=== PATIENT | male | born 1955 | race Caucasian/White ===

== ENCOUNTER → 2021-05-11 | Outpatient (CLI) | payer OTHER ==
[~2021-05-11] MED LIST: ASPIR 8181 MG PO; BRILINTA 90 MG90 MG PO; CLOPIDOGREL75 MG PO; FISH OIL 1,0001 EACH PO; GLUCOPHAGE 500500 MG PO; GLUCOTROL 10 MG10 MG PO; IBUPROFEN800 MG PO; LIPITOR TAB 2020 MG PO; LISINOPRIL-HCT1 EACH PO; LISINOPRIL5 MG PO; LOPRESSOR 25 MG25 MG PO; NASAL DECONGEST30 ML; NITROSTAT 0.40.4 MG SL; PROTONIX 40 MG40 M1 PO; VITAMIN D50000 UNIT PO
== END ==
LOC: KOH-I 08:55
DX: N28.1 Cyst of kidney, acquired (principal); R59.0 Localized enlarged lymph nodes
CPT/HCPCS: 74150

== ENCOUNTER 2022-07-16 08:53 | Emergency (ER) | payer MEDICARE, OTHER | END 2022-07-16 09:00 | disposition left against medical advice (07) | LOC: ER1 08:53 | DX: Z53.21 Procedure and treatment not carried out due to patient leaving prior to being seen by health care provider (principal) ==